=== PATIENT | female | born 1990 | race African-American/Black ===

== ENCOUNTER 2020-02-05 11:49 | Emergency (ER) | payer OTHER ==
[~2020-02-05] VITALS: Ht 167.6 cm; Wt 77.3 kg
[2020-02-05 11:50] VITALS: BP 124/86
[2020-02-05] MEDS ORDERED: IBUPROFEN 600 MG TABLET PO ONE (12:15)
== END 2020-02-05 14:03 | disposition home or self-care (01) ==
LOC: EMS 11:52
DX: S40.021A Contusion of right upper arm, initial encounter (principal); X50.0XXA Overexertion from strenuous movement or load, initial encounter; Y93.89 Activity, other specified; Y92.89 Other specified places as the place of occurrence of the external cause; Y99.8 Other external cause status